=== PATIENT | male | born 1975 | race Hispanic/Latino ===

== ENCOUNTER 2018-05-28 16:09 | Emergency (ER) | payer SELFPAY ==
[2018-05-28] MEDS ORDERED: Fluorescein Opthalmic Strip ONE (18:00)
[2018-05-28] MEDS ORDERED: Proparacaine 0.5% Opth 15 ML BOT ONE (18:01)
== END 2018-05-28 18:26 | disposition home or self-care (01) ==
LOC: ERS 16:09
DX: S05.01XA Injury of conjunctiva and corneal abrasion without foreign body, right eye, initial encounter (principal); H10.9 Unspecified conjunctivitis; F17.210 Nicotine dependence, cigarettes, uncomplicated; Z71.6 Tobacco abuse counseling; Y33.XXXA Other specified events, undetermined intent, initial encounter
CPT/HCPCS: 99406